=== PATIENT | male | born 1980 | race African-American/Black ===

== ENCOUNTER 2018-11-13 12:14 | Emergency (ER) | payer OTHER, SELFPAY ==
[~2018-11-13] VITALS: Ht 172.7 cm; Wt 78.6 kg
[2018-11-13] MEDS ORDERED: CEPH500C PO (13:03)
[2018-11-13] MEDS ORDERED: CEPHALEXIN 500 MG CAP PO ONE (13:15)
[2018-11-13 13:32] VITALS: BP 120/74
[2018-11-13] MEDS ORDERED: CLIN150C14 PO ×2 (17:58→18:15)
== END 2018-11-13 13:33 | disposition home or self-care (01) ==
LOC: M ED 12:14
DX: H02.843 Edema of right eye, unspecified eyelid (principal)